=== PATIENT | male | born 1995 | race Caucasian/White ===

== ENCOUNTER 2024-02-14 21:13 | Emergency (ER) | payer SELFPAY ==
[~2024-02-14] VITALS: Ht 172.7 cm; Wt 61.4 kg
[2024-02-14 21:16] VITALS: TEMP 97.8
[2024-02-14] MEDS ORDERED: HYDROcodone/Acetaminophen 7.5-325 MG TAB PO ONE (21:45)
[2024-02-14] MEDS ORDERED: Home HYDROcodone/Acetaminophen 5/325 MG #4 TABS/PACK PO ONE (22:15)
[2024-02-14 22:40] VITALS: BP 96/72; PULSE 88
== END 2024-02-14 22:40 | disposition home or self-care (01) ==
LOC: COL.ER 21:13
DX: S43.005A Unspecified dislocation of left shoulder joint, initial encounter (principal); V80.010A Animal-rider injured by fall from or being thrown from horse in noncollision accident, initial encounter; Y93.52 Activity, horseback riding; Y92.39 Other specified sports and athletic area as the place of occurrence of the external cause